=== PATIENT | male | born 1945 | race Caucasian/White ===

== ENCOUNTER → 2021-03-23 | Outpatient (CLI) | payer MEDICARE ==
[~2021-03-23] MED LIST: ABILIFY 10MG TA10 MG PO; ASPIRIN 32325 MG/TA1 PO; ASPIRIN 81M81 MG/TA2 PO; CELEBREX 200MG200 MG PO; HCTZ12.5TAB; K-DUR 10 MEQ T10 MEQ PO; LIPITOR20 MG PO; LUTEIN8MG PO; MINIPRESS 1M1 MG/CAP PO; MOBIC 7.5MG7.5 MG PO; NORCO 325 MG-7.1 TAB PO; OCUVITE1 TA1 PO; SALSALATE750 MG PO; SINGULAIR 110 MG/TAB PO; ULTRAM 50MG TAB50 MG PO; ZOLOFT 50MG50 MG PO
== END ==
LOC: ZCOL.LAB 12:00 → EDSTATUS 14:13
DX: Z20.822 Contact with and (suspected) exposure to COVID-19 (principal)

== ENCOUNTER → 2021-07-28 | Outpatient (CLI) | payer MEDICARE, OTHER ==
[2021-07-28 16:00] LABS: CALCIUM 9.1 mg/dL (8.4-10.2); CREATININE, serum 1.02 mg/dL (0.72-1.25)
== END ==
LOC: ZCOL.LAB 13:50
PROVIDERS: Internal Medicine
DX: E87.6 Hypokalemia (principal)